=== PATIENT | male | born 1975 | race Caucasian/White ===

== ENCOUNTER 2021-01-26 08:55 | Outpatient (REF) | payer OTHER, SELFPAY ==
[2021-01-26 12:19] LABS: Estimated Average Glucose 232 mg/dL; Hemoglobin A1c % 9.7 %
== END 2021-01-26 08:56 | disposition home or self-care (01) ==
LOC: HO.WFDLDS 08:55
PROVIDERS: Visit Provider Hospitalist
DX: R73.9 Hyperglycemia, unspecified (principal)
CPT/HCPCS: 36415; 83036

== ENCOUNTER 2021-03-03 09:05 | Outpatient (REF) | payer OTHER, SELFPAY ==
[2021-03-03 10:38] LABS: Hematocrit 44.7 % (42.0-52.0); Hemoglobin 15.5 g/dl (14.0-18.0); Mean Corpuscular HGB Conc 34.7 g/dl (31.0-36.0); Mean Corpuscular Hemoglobin 30.6 pg (27.0-33.0); Mean Corpuscular Volume 88.2 fL (80.0-98.0); Mean Platelet Volume 10.3 fL (9.4-12.4); Platelet Count 272 X10*3/uL (160-400); Red Blood Count 5.07 X10*6/uL (4.60-5.80); Red Cell Distribution Width 11.4 % (11.0-16.0); White Blood Count 7.1 X10*3/uL (4.8-10.8)
[2021-03-03 11:11] LABS: Alanine Aminotransferase 26 U/L (0-40); Albumin Level 4.4 g/dL (3.5-5.0); Alkaline Phosphatase 48 U/L (39-117); Anion Gap 13 (12-20); Aspartate Amino Transferase 15 U/L (5-37); Bilirubin Total 0.6 mg/dL (0.0-1.0); Blood Urea Nitrogen 19 mg/dL (9-16); Calcium 10.2 mg/dL (8.4-10.2); Carbon Dioxide 28 mmol/L (22-29); Chloride 99 mmol/L (96-108); Cholesterol 215 mg/dL; Estimated Glomerular Filt Rate > 60; Glucose Fasting 307 mg/dL (60-99); HDL Cholesterol 41 mg/dL; LDL Cholesterol Calculated 97 mg/dl; Potassium 4.3 mmol/L (3.3-5.1); Sodium 136 mmol/L (135-145); Triglycerides 389 mg/dL
[2021-03-03 11:31] LABS: TSH reflex Free T4 2.44 uIU/mL (0.32-4.0)
== END 2021-03-03 09:06 | disposition home or self-care (01) ==
LOC: HO.WFDLDS 09:05
PROVIDERS: Visit Provider Hospitalist
DX: Z00.01 Encounter for general adult medical examination with abnormal findings (principal)
CPT/HCPCS: 36415; 80053; 80061; 84443; 85027

== ENCOUNTER 2021-09-29 16:39 | Outpatient (REF) | payer OTHER, SELFPAY ==
[2021-09-29 17:37] LABS: Alanine Aminotransferase 33 U/L (0-40); Albumin Level 4.7 g/dL (3.5-5.0); Alkaline Phosphatase 44 U/L (39-117); Amylase 33 U/L (28-100); Aspartate Amino Transferase 19 U/L (5-37); Bilirubin Direct 0.2 mg/dL (0.0-0.5); Bilirubin Total 0.7 mg/dL (0.0-1.0); Lipase 13 U/L (8-78); Total Protein 7.4 g/dL (6.5-8.0)
== END 2021-09-29 16:40 | disposition home or self-care (01) ==
LOC: HO.LAB 16:39
PROVIDERS: PCP Hospitalist; Visit Provider Hospitalist
DX: Z00.00 Encounter for general adult medical examination without abnormal findings (principal); R10.11 Right upper quadrant pain
CPT/HCPCS: 36415; 80076; 82150; 83690

== ENCOUNTER 2021-10-14 14:17 | Outpatient (REF) | payer OTHER, SELFPAY ==
--- NOTE | ~2021-10-14 | US_ITS ---
EXAMINATION: US ABDOMEN COMPLETE CLINICAL INFORMATION: Pain of right upper quadrant. COMPARISON: None TECHNIQUE: Real-time imaging of the abdominal viscera. FINDINGS: PANCREAS: Normal. ABDOMINAL AORTA: The proximal, mid, and distal segments are normal in caliber. INFERIOR VENA CAVA: Visualized portions are normal. LIVER: Liver is diffusely hyperechoic, finding typically caused by steatosis. Otherwise, liver is unremarkable. No evidence of hepatic mass or intrahepatic bile duct dilatation. GALLBLADDER: Normal. The gallbladder is physiologically distended without evidence of stones, sludge, polyps, wall thickening or pericholecystic fluid. COMMON BILE DUCT: Normal in caliber measuring 0.4 cm in diameter. RIGHT KIDNEY: Normal. No hydronephrosis. No renal calculi or focal parenchymal lesions. The kidney measures 11.3 cm in maximum dimension. LEFT KIDNEY: Normal. No hydronephrosis. No renal calculi or focal parenchymal lesions. The kidney measures 11.9 cm in maximum dimension. SPLEEN: Normal. The spleen measures 11.5 cm in maximum dimension. FREE FLUID: None. US/US abdomen complete IMPRESSION: * No acute sonographic abnormalities in the examined abdomen. * No evidence of cholelithiasis, cholecystitis or biliary tract obstruction. * Liver parenchyma is diffusely hyperechoic - a finding typically caused by steatosis. Consider correlation with liver function tests.
== END 2021-10-14 14:18 | disposition home or self-care (01) ==
LOC: HO.US 14:17
PROVIDERS: Visit Provider Hospitalist
DX: R10.11 Right upper quadrant pain (principal)
CPT/HCPCS: 76700

== ENCOUNTER 2021-10-21 07:10 | Outpatient (REF) | payer OTHER, SELFPAY ==
--- NOTE | ~2021-10-21 | XR_ITS ---
EXAMINATION: XR ABDOMEN KUB CLINICAL INDICATION: Right upper quadrant pain. COMPARISON: Abdominal ultrasound dated 10/14/2021. TECHNIQUE: 4 AP views of the abdomen and pelvis are submitted.. FINDINGS: The bowel gas pattern is normal, with no evidence of ileus or obstruction. There is a mild stool burden. No unusual soft tissue calcifications are noted. The bones are unremarkable. XR/XR KUB IMPRESSION: Unremarkable examination, without obstruction or ileus seen. There is no free intraperitoneal air noted on these AP views. No definite urinary calculus is appreciated
== END 2021-10-21 07:11 | disposition home or self-care (01) ==
LOC: HO.XRAY 07:10
PROVIDERS: PCP Hospitalist; Visit Provider Hospitalist
DX: R10.11 Right upper quadrant pain (principal); R10.12 Left upper quadrant pain
CPT/HCPCS: 74018

== ENCOUNTER 2021-11-01 08:30 | Outpatient (REF) | payer OTHER, SELFPAY ==
[2021-11-04 13:40] LABS: H Pylori Breath Test Negative (Negative)
== END 2021-11-01 08:31 | disposition home or self-care (01) ==
LOC: HO.LNP 08:30
PROVIDERS: Visit Provider Physician Assistant
DX: A04.8 Other specified bacterial intestinal infections (principal)
CPT/HCPCS: 83013

== ENCOUNTER 2021-11-02 15:48 | Outpatient (REF) | payer OTHER, SELFPAY ==
[2021-11-06 14:40] LABS: H Pylori Breath Test Negative (Negative)
== END 2021-11-02 15:49 | disposition home or self-care (01) ==
LOC: HO.LNP 15:48
PROVIDERS: Visit Provider Physician Assistant
DX: A04.8 Other specified bacterial intestinal infections (principal)
CPT/HCPCS: 83013